=== PATIENT | male | born 1965 | race Caucasian/White ===

== ENCOUNTER 2018-04-20 00:15 | Emergency (ER) | payer BC ==
[2018-04-20] MEDS ORDERED: ONDANSETRON 4 MG/2 ML VIAL IVP STA (00:47)
[2018-04-20] MEDS ORDERED: SODIUM CHLORIDE 0.9% 1,000 ML IV ONE (00:47)
--- NOTE | 2018-04-20 00:49 | ED Physician Documentation ---
PD HPI NVD - Stated complaint Stated Complaint: VOMITING,DIARRHEA - Chief complaint Chief Complaint: Abd Pain - History obtained from History obtained from: Patient, Family - History of Present Illness Timing - onset: How many days ago (2) Timing - duration: Days Timing - details: Gradual onset, Still present Associated symptoms: Loss of appetite, Other (diarrhea and vomiting) Contributing factors: Travel Improved by: Meds Worsened by: Eating Similar symptoms before: Diagnosis (diarrhea related to removal of GB) Recently seen: Not recently seen - Additonal information Additional information: 53 y/o male who is status post cholecystectomy is visiting here from [place] and who has recently traveled by automobile has developed diarrhea which is normal for the patient in bouts since he has had his gallbladder out. He usually uses some Imodium with this and is able to control his symptoms. He is now developed some nausea and vomiting and today was unable to hold his Imodium down. He feels that he is quite dehydrated and feels that the only thing is Down today has been 20 ounces of Mountain Dew. Review of Systems Constitutional: reports: Sweats. denies: Fever, Chills, Myalgias Eyes: denies: Decreased vision Ears: denies: Ear pain Nose: denies: Rhinorrhea / runny nose, Congestion Throat: denies: Sore throat Cardiac: denies: Chest pain / pressure, Palpitations Respiratory: denies: Dyspnea, Cough GI: reports: Abdominal Pain, Nausea, Vomiting, Diarrhea : denies: Dysuria, Frequency Skin: denies: Rash Musculoskeletal: denies: Neck pain, Back pain, Extremity pain PD PAST MEDICAL HISTORY - Present Medications Home Medications: Ambulatory Orders Medication Instructions Recorded Confirmed Allopurinol 1 tab PO DAILY 04/20/18 04/20/18 Doxazosin [Cardura] 8 mg PO DAILY 04/20/18 04/20/18 Escitalopram [Lexapro] 1 tab PO DAILY 04/20/18 04/20/18 Finasteride [Proscar] 1 tab PO DAILY 04/20/18 04/20/18 Gabapentin 1 tab PO BID 04/20/18 04/20/18 LORazepam [Lorazepam] 1 tab PO DAILY 04/20/18 04/20/18 Levothyroxine Sodium [Synthroid] 1 tab PO DAILY 04/20/18 04/20/18 Omeprazole 1 tab PO BID 04/20/18 04/20/18 Promethazine [Phenergan] 25 - 50 mg PO Q6H PRN #10 tab 04/20/18 Sucralfate [Carafate] 1 gm PO ACHS #30 tablet 04/20/18 Telmisartan 1 tab PO DAILY 04/20/18 04/20/18 - Allergies Allergies/Adverse Reactions: Allergies Allergy/AdvReac Type Severity Reaction Status Date / Time cephalexin [From Keflex] Allergy Hives Verified 04/20/18 00:36 cyclobenzaprine Allergy Emesis Verified 04/20/18 00:36 [From Flexeril] ibuprofen Allergy Nausea Verified 04/20/18 00:36 meperidine [From Demerol] Allergy Hives Verified 04/20/18 00:36 methocarbamol [From Robaxin] Allergy Emesis Verified 04/20/18 00:36 Penicillins Allergy Anaphylaxis Verified 04/20/18 00:36 prochlorperazine Allergy Anaphylaxis Verified 04/20/18 00:36 [From Compazine] PD ED PE NORMAL - Vitals Vital signs reviewed: Yes (hypertensive) - General General: Alert and oriented X 3, No acute distress, Well developed/nourished - HEENT HEENT: Atraumatic, PERRL, EOMI - Neck Neck: Supple, no meningeal sign - Cardiac Cardiac: RRR, No murmur - Respiratory Respiratory: No respiratory distress, Clear bilaterally - Abdomen Abdomen: Soft, Non tender - Back Back: No CVA TTP, No spinal TTP - Derm Derm: Normal color, Warm and dry, No rash - Extremities Extremities: No deformity, No edema - Neuro Neuro: Alert and oriented X 3, hebrew cantor 2-12 intact, No motor deficit, No sensory deficit, Normal speech Eye Opening: Spontaneous Motor: Obeys Commands Verbal: Oriented GCS Score: 15 - Psych Psych: Normal mood, Normal affect Results - Vitals Vitals: Vital Signs - 24 hr 04/20/18 04/20/18 00:23 04:52 Temperature 36.2 C L Heart Rate 60 65 Respiratory 18 16 Rate Blood Pressure 165/100 H 170/95 H O2 Saturation 95 98 Oxygen O2 Source Room air - Labs Labs: Laboratory Tests 04/20/18 04/20/18 04/20/18 01:00 01:00 01:00 WBC 8.1 RBC 4.93 Hgb 16.0 Hct 46.6 MCV 94.5 H MCH 32.5 H MCHC 34.4 RDW 14.0 Plt Count 166 MPV 9.0 Neut # (Auto) 6.3 Lymph # (Auto) 0.9 L [place] # (Auto) 0.4 Eos # (Auto) 0.2 Baso # (Auto) 0.3 H Absolute Nucleated RBC 0.00 Nucleated RBC % 0.1 Sodium 140 Potassium 3.8 Chloride 107 Carbon Dioxide 25 Anion Gap 8.0 BUN 18 Creatinine 1.3 H Estimated GFR (MDRD) 57 L Glucose 123 H Calcium 9.4 Total Bilirubin 1.5 H AST 84 H ALT 123 H Alkaline Phosphatase 114 Troponin I < 0.04 Total Protein 7.8 Albumin 4.6 Globulin 3.2 Albumin/Globulin Ratio 1.4 Lipase 28 Procedures - IVC sono (time) 0040 Bedside IVC sono: IVC measures (cm) (1.2), IVC collapsed c insp (cm) (complete) , Dehydration (est 1 liter deficit) PD MEDICAL DECISION MAKING - ED course Complexity details: reviewed results, re-evaluated patient, considered differential, d/w patient, d/w family ED course: 53-year-old male with acute gastroenteritis has vomiting and diarrhea after eating a greasy meal. He has had trouble with this previously and has had trouble since having his gallbladder removed. He is having a lot of acid symptoms and he is administered Carafate and Mylanta with some improvement after failing Zofran and Phenergan for nausea. This seems to help some and he is administered saline as well for dehydration. He is eventually given Lomotil for the diarrhea when he is able to hold orals. He is then discharged home. - Sepsis Event Vital Signs: Vital Signs - 24 hr 04/20/18 04/20/18 00:23 04:52 Temperature 36.2 C L Heart Rate 60 65 Respiratory 18 16 Rate Blood Pressure 165/100 H 170/95 H O2 Saturation 95 98 Oxygen O2 Source Room air Departure - Departure Disposition: 01 Home, Self Care Clinical Impression: Dehydration Gastritis Qualifiers: Gastritis type: unspecified gastritis Chronicity: acute Gastritis bleeding: without bleeding Qualified Code(s): K29.00 - Acute gastritis without bleeding Condition: Stable Instructions: ED Dehydration, ED Gastritis Follow-Up: Your, doctor [Other] Prescriptions: Promethazine [Phenergan] 25 - 50 mg PO Q6H PRN #10 tab PRN Reason: Nausea / Vomiting Sucralfate [Carafate] 1 gm PO ACHS #30 tablet Discharge Date/Time: 04/20/18 04:52
[2018-04-20 01:15] LABS: BASOPHILS # (AUTO) 0.3 10^3/uL (0.0-0.1); BASOPHILS % (AUTO) 3.8 %; EOSINOPHILS # (AUTO) 0.2 10^3/uL (0.0-0.7); EOSINOPHILS % (AUTO) 2.7 %; LYMPHOCYTES # (AUTO) 0.9 10^3/uL (1.5-3.5); LYMPHOCYTES % (AUTO) 10.7 %; MEAN CORPUSCULAR HEMOGLOBIN 32.5 pg (27.0-31.0); MEAN CORPUSCULAR HGB CONC 34.4 g/dL (32.0-36.0); MEAN CORPUSCULAR VOLUME 94.5 fL (80.0-94.0); MONOCYTES # (AUTO) 0.4 10^3/uL (0.0-1.0); MONOCYTES % (AUTO) 4.4 %; NEUTROPHILS # (AUTO) 6.3 10^3/uL (1.5-6.6); NEUTROPHILS % (AUTO) 78.4 %; PLT - PLATELET COUNT 166 10^3/uL (130-450); RED BLOOD COUNT 4.93 10^6/uL (4.70-6.10); WHITE BLOOD COUNT 8.1 x10^3/uL (4.8-10.8)
[2018-04-20 01:27] LABS: ALBUMIN 4.6 g/dL (3.2-5.5); ALBUMIN/GLOBULIN RATIO 1.4 (1.0-2.2); BILIRUBIN,TOTAL 1.5 mg/dL (0.2-1.0); CALCIUM 9.4 mg/dL (8.5-10.3); CREATININE 1.3 mg/dL (0.6-1.2); TOTAL PROTEIN 7.8 g/dL (6.7-8.2)
[2018-04-20] MEDS ORDERED: PROMETHAZINE INJ 25 MG in SODIUM CHLORIDE 0.9% 50 ML IV STA (01:33)
[2018-04-20] MEDS ORDERED: MAG HYDROX/AL HYDROX/SIMETH 30 ML UDC PO STA (03:05)
[2018-04-20] MEDS ORDERED: SUCRALFATE 1 GM/10 ML UDC PO STA (03:05)
[2018-04-20] MEDS ORDERED: FAMOTIDINE 20 MG/50 ML 50 ML IV ONE (03:06)
[2018-04-20] MEDS ORDERED: DIPHENOX/ATROPINE 2.5/0.025 MG TABLET PO STA (03:50)
[2018-04-20 04:52] VITALS: BP 170/95
== END 2018-04-20 04:52 | disposition home or self-care (01) ==
LOC: ED 00:15
DX: E86.0 Dehydration (principal); K29.00 Acute gastritis without bleeding
CPT/HCPCS: 36415; 80053; 83690; 84484; 85025; 96361; 96365; 96366; 96367; 96375; 99283; A9270; J7040